=== PATIENT | male | born 1960 | race Caucasian/White ===

== ENCOUNTER 2020-08-25 03:17 | Emergency (ER) | payer OTHER ==
[~2020-08-25 03:17] MED LIST: ALLOPURINOL300 MG PO; AMLODIPINE BESY10 MG PO; DAPSONE25 MG PO; ELIQUIS2.5 MG PO; NEXIUM20 MG PO; OZEMPIC0.25 MG/0. SQ; PERCOCET 5-3251 EACH PO; TYLENOL 500 MG500 MG PO
[2020-08-25 05:25] LABS: HEMOGLOBIN 12.4 gm/dl (14.0-17.5); RED BLOOD COUNT 3.66 M/UL (4.20-5.50); WHITE BLOOD COUNT 9.5 K/UL (4.5-11.0)
[2020-08-25 05:51] LABS: BUN/CREATININE RATIO 18 (0-10)
[2020-08-25] MEDS ORDERED: LEVOFLOXACIN750 MG PO (09:58)
[2020-08-25] MEDS ORDERED: BENZONATATE200 MG PO (10:01)
== END 2020-08-25 11:00 | disposition home or self-care (01) ==
LOC: ER1 03:17
PROVIDERS: Student in an Organized Health Care Education/Training Program
DX: J18.9 Pneumonia, unspecified organism (principal); E11.65 Type 2 diabetes mellitus with hyperglycemia; I25.10 Atherosclerotic heart disease of native coronary artery without angina pectoris; Z20.822 Contact with and (suspected) exposure to COVID-19
CPT/HCPCS: 0240U; 71045; 80053; 82550; 82553; 83605; 83690; 83874; 83880; 84484; 85025; 85379; 87040; 93005; 94664; 96374; 99284; J0456; J0696; J7030; Q9967

== ENCOUNTER → 2020-12-10 | Outpatient (CLI) | payer OTHER ==
[~2020-12-10] MED LIST changes: +BENZONATATE200 MG PO; +LEVOFLOXACIN750 MG PO
== END ==
LOC: KOH-I 13:14
DX: M25.572 Pain in left ankle and joints of left foot (principal); M79.89 Other specified soft tissue disorders
CPT/HCPCS: 73610

== ENCOUNTER → 2021-01-02 | Outpatient (CLI) | payer OTHER | LOC: KOH-I 08:57 | DX: M14.672 Charcot's joint, left ankle and foot (principal); M65.872 Other synovitis and tenosynovitis, left ankle and foot | CPT/HCPCS: 73721 ==